=== PATIENT | male | born 2000 | race Caucasian/White ===

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

== ENCOUNTER 2024-05-26 15:20 | Emergency (ER) | payer OTHER ==
[~2024-05-26] VITALS: Ht 170.2 cm; Wt 59.0 kg
[~2024-05-26 15:20] MED LIST changes: +OSEL75CA PO
[2024-05-26] MEDS ORDERED: ORPHENADRINE CITRATE 30 MG/ML AMPUL IM STA (17:06)
[2024-05-26] MEDS ORDERED: DEXAMETHASONE SODIUM PHOSPHATE 4 MG/ML VIAL IM STA (17:06)
[2024-05-26] MEDS ORDERED: TRAMADOL HCL 50 MG TABLET PO STA (17:10)
[2024-05-26] MEDS ORDERED: ORPHENADRINE CITRATE 30 MG/ML AMPUL ONE (18:00)
[2024-05-26] MEDS ORDERED: DEXAMETHASONE SODIUM PHOSPHATE 4 MG/ML VIAL ONE (18:00)
[2024-05-26] MEDS ORDERED: AZITHROMYCIN600 MG PO (18:38)
== END 2024-05-26 18:57 | disposition home or self-care (01) ==
LOC: ER 15:22
DX: K13.79 Other lesions of oral mucosa (principal); Z88.8 Allergy status to other drugs, medicaments and biological substances; Z88.6 Allergy status to analgesic agent; Z91.013 Allergy to seafood